=== PATIENT | female | born 1955 ===

== ENCOUNTER 2021-09-16 19:45 | Emergency (ER) | payer OTHER ==
--- NOTE | 2021-09-16 21:58 | RAD REPORT ---
EXAM DESCRIPTION: RAD - Wrist Left 3 View - 09/16/2021 9:42 pm CLINICAL HISTORY: PAIN Pain COMPARISON: No comparisons FINDINGS: Mildly impacted fracture involves the distal radius. Ulnar styloid fracture is also prese nt.
[2021-09-16] MEDS ORDERED: HYDROCODONE/APAP 10/325 TAB ONE (22:17)
[2021-09-16] MEDS ORDERED: IBUPROFEN 200 MG TAB PO ONE (22:17)
--- NOTE | 2021-09-16 22:54 | EDPHYS ---
Physician Documentation [facility] Name: Sheryl Mixon Age: 66 yrs Sex: Female : 1955 Arrival Date: 09/16/2021 Time: 19:47 Bed 11 Private MD: ED Physician Abdi Veras HPI: 09/16 22:57 This 66 yrs old Female presents to ER via Ambulatory with complaints of Wrist Injury. kb 22:57 The patient or guardian reports decreased range of motion, deformity, injury, pain, kb swelling, tenderness. The complaints affect the left wrist diffusely. Context: The problem was sustained at home, resulted from a fall, while walking. Onset: The symptoms/episode began/occurred just prior to arrival. Modifying factors: The symptoms are alleviated by nothing, the symptoms are aggravated by movement. Associated signs and symptoms: The patient has no apparent associated signs or symptoms. The patient has not experienced similar symptoms in the past. The patient has not recently seen a physician. Pt reports her dog made her fall down and she braced herself with her hands. c/o pain to left wrist. Historical: - Allergies: 20:04 No Known Allergies; jb4 - PMHx: 20:04 None; jb4 - PSHx: 20:04 back surgery x6; jb4 - Immunization history:: Adult Immunizations up to date. - Social history:: Smoking status: Patient reports the use of cigarette tobacco products, smokes one-half pack cigarettes per day. ROS: 22:55 Constitutional: Negative for fever, chills, and weight loss. kb 22:55 MS/extremity: Positive for injury or acute deformity, decreased range of motion, deformity, pain, swelling, tenderness, of the left wrist. 22:55 All other systems are negative. Exam: 22:55 Constitutional: This is a well developed, well nourished patient who is awake, alert, kb and in no acute distress. Head/Face: Normocephalic, atraumatic. ENT: Moist Mucous membranes Cardiovascular: Regular rate and rhythm with a normal S1 and S2. No gallops, murmurs, or rubs. No pulse deficits. Respiratory: Respirations even and unlabored. No increased work of breathing. Talking in full sentences Skin: Warm, dry with normal turgor. Normal color. Neuro: Awake and alert, GCS 15, oriented to person, place, time, and situation. Moves all extremities. Normal gait. Psych: Awake, alert, with orientation to person, place and time. Behavior, mood, and affect are within normal limits. 22:55 Musculoskeletal/extremity: Extremities: grossly normal except: noted in the left wrist: decreased ROM, deformity, pain, swelling, tenderness, ROM: limited active range of motion, in the left wrist, Circulation is intact in all extremities. Sensation intact. Vital Signs: 20:02 BP 160 / 88; Pulse 83; Resp 16; Temp 98.1(TE); Pulse Ox 97% on R/A; Weight 77.11 kg jb4 (R); Height 5 ft. 2 in. (157.48 cm) (R); Pain 7/10; 20:02 Body Mass Index 31.09 (77.11 kg, 157.48 cm) jb4 Procedures: 22:58 Splinting: Splint applied to left wrist using Orthoglass splint, applied by tech. kb Examined by me, post splint application: neurovascular intact, 2+ distal pulses palpable, brisk capillary refill noted, Patient tolerated well. MDM: 20:45 Patient medically screened. kb 22:57 Data reviewed: vital signs, nurses notes. Data interpreted: Pulse oximetry: on room air kb is 97 %. Interpretation: normal. Counseling: I had a detailed discussion with the patient and/or guardian regarding: the historical points, exam findings, and any diagnostic results supporting the discharge/admit diagnosis, radiology results, the need for outpatient follow up, a orthopedic surgeon, to return to the emergency department if symptoms worsen or persist or if there are any questions or concerns that arise at home. 09/16 20:09 Order name: XRAY Wrist LEFT 3 view; Complete Time: 21:59 bb 09/16 22:00 Order name: Sugar Tong Forearm Splint; Complete Time: 22:12 kb 09/16 22:00 Order name: Sling; Complete Time: 22:12 kb Administered Medications: 22:13 Drug: [place] (HYDROcodone-acetaminophen) 10 mg-325 mg 1 tabs Route: PO; bb 23:00 Follow up: Response: No adverse reaction; Marked relief of symptoms jb4 22:13 Drug: Ibuprofen 600 mg Route: PO; bb 23:00 Follow up: Response: No adverse reaction; Marked relief of symptoms jb4 Disposition Summary: 09/16/21 22:53 Discharge Ordered Location: Home kb Condition: Stable kb Diagnosis - Impacted fracture left distal radius kb - ulnar styloid fracture - left kb Followup: kb - With: Emergency Department - When: As needed - Reason: Worsening of condition Followup: kb - With: Private Physician - When: 2 - 3 days - Reason: Recheck today's complaints, Continuance of care, Re-evaluation by your physician Discharge Instructions: - Discharge Summary Sheet kb - Radial Fracture kb - Ulnar Fracture kb Forms: - Medication Reconciliation Form kb - Thank You Letter kb - Antibiotic Education kb - Prescription Opioid Use kb Prescriptions: - Diclofenac Sodium 75 mg Oral tablet,delayed release (DR/EC) - take 1 tablet by ORAL route 2 times per day As needed; 30 tablet; Refills: 0, kb Product Selection Permitted Signatures: Dispatcher [employer] EDHayley Purcell FNP-C FNP-Marcela Lima RN RN bb Bryson, James, RN RN jb4
--- NOTE | 2021-09-16 22:54 | ER ---
Nurse's Notes [facility] Name: Sheryl Mixon Age: 66 yrs Sex: Female : 1955 Arrival Date: 09/16/2021 Time: 19:47 Bed 11 Private MD: Diagnosis: Impacted fracture left distal radius;ulnar styloid fracture - left Presentation: 09/16 20:02 Chief complaint: Patient states: I was playing with the dog and was knocked down. I jb4 tried to brace myself and injured my left wrist. I can move my fingers but not well. Coronavirus screen: At this time, the client does not indicate any symptoms associated with coronavirus-19. Ebola Screen: No symptoms or risks identified at this time. Initial Sepsis Screen: Does the patient meet any 2 criteria? No. Patient's initial sepsis screen is negative. Does the patient have a suspected source of infection? No. Patient's initial sepsis screen is negative. Risk Assessment: Do you want to hurt yourself or someone else? Patient reports no desire to harm self or others. Onset of symptoms was September 16, 2021. Transition of care: patient was not received from another setting of care. 20:02 Method Of Arrival: Ambulatory jb4 20:02 Acuity: KRISTIAN 4 jb4 Historical: - Allergies: 20:04 No Known Allergies; jb4 - PMHx: 20:04 None; jb4 - PSHx: 20:04 back surgery x6; jb4 - Immunization history:: Adult Immunizations up to date. - Social history:: Smoking status: Patient reports the use of cigarette tobacco products, smokes one-half pack cigarettes per day. Screenin:05 Abuse screen: Denies threats or abuse. Nutritional screening: No deficits noted. jb4 Tuberculosis screening: No symptoms or risk factors identified. Fall Risk None identified. Assessment: 20:05 General: Appears in no apparent distress. comfortable, Behavior is calm, cooperative, jb4 appropriate for age. Pain: Complains of pain in lateral aspect of left wrist Pain does not radiate. Pain currently is 2 out of 10 on a pain scale. at worst was 10 out of 10 on a pain scale. Neuro: Level of Consciousness is awake, alert, obeys commands, Oriented to person, place, time, situation. Cardiovascular: Patient's skin is warm and dry. Respiratory: Airway is patent Respiratory effort is even, unlabored, Respiratory pattern is regular, symmetrical. Derm: Skin is intact, Skin is pink, warm \T\ dry. Musculoskeletal: Circulation, motion, and sensation intact. Range of motion: intact in all extremities. 22:00 Reassessment: Patient appears in no apparent distress at this time. Patient and/or jb4 family updated on plan of care and expected duration. Pain level reassessed. Patient is alert, oriented x 3, equal unlabored respirations, skin warm/dry/pink. 23:07 Reassessment: Patient appears in no apparent distress at this time. Patient and/or jb4 family updated on plan of care and expected duration. Pain level reassessed. Patient is alert, oriented x 3, equal unlabored respirations, skin warm/dry/pink. Vital Signs: 20:02 BP 160 / 88; Pulse 83; Resp 16; Temp 98.1(TE); Pulse Ox 97% on R/A; Weight 77.11 kg jb4 (R); Height 5 ft. 2 in. (157.48 cm) (R); Pain 7/10; 20:02 Body Mass Index 31.09 (77.11 kg, 157.48 cm) jb4 ED Course: 19:47 Patient arrived in ED. bp1 20:04 Triage completed. jb4 20:04 Arm band placed on right wrist. jb4 20:05 Patient has correct armband on for positive identification. Bed in low position. Call jb4 light in reach. Side rails up X 1. 20:44 Hayley Del Cid FNP-C is [facility]. kb 20:44 Abdi Veras MD is Attending Physician. kb 21:44 XRAY Wrist LEFT 3 view In Process Unspecified. EDMS 22:12 Orthoglass splint: Sugar tong splint applied on left arm. Sling applied to left arm. mh5 22:13 Warm blanket given. Pillow given. Pulse ox on. NIBP on. mh5 22:44 Chad Montelongo, GARRET is Primary Nurse. jb4 23:07 No provider procedures requiring assistance completed. Patient did not have IV access jb4 during this emergency room visit. Administered Medications: 22:13 Drug: [place] (HYDROcodone-acetaminophen) 10 mg-325 mg 1 tabs Route: PO; bb 23:00 Follow up: Response: No adverse reaction; Marked relief of symptoms jb4 22:13 Drug: Ibuprofen 600 mg Route: PO; abbi 23:00 Follow up: Response: No adverse reaction; Marked relief of symptoms jb4 Medication: 20:05 VIS not applicable for this client. jb4 Outcome: 22:53 Discharge ordered by . alan 23:07 Discharged to home ambulatory. jb4 23:07 Condition: stable 23:07 Discharge instructions given to patient, Instructed on discharge instructions, follow up and referral plans. medication usage, Demonstrated understanding of instructions, follow-up care, medications, Prescriptions given X 1. 23:08 Patient left the ED. jb4 Signatures: Dispatcher [employer] EDMS Hayley Del Cid, TAXICAB COORDINATOR-C TAXICAB COORDINATOR-Marcela Lima RN RN Chad Boo RN RN jbRenetta Tamez 5 [facility]
[2021-09-16 23:45] VITALS: BP 160/88; TEMP 98.1; O2SAT 97
== END 2021-09-16 23:08 | disposition home or self-care (01) ==
LOC: ER 19:45
PROC: 2W3DX1Z Immobilization of Left Lower Arm using Splint (ICD-10-PCS; principal; 2021-09-16)
DX: S52.502A Unspecified fracture of the lower end of left radius, initial encounter for closed fracture (principal); S52.612A Displaced fracture of left ulna styloid process, initial encounter for closed fracture; F17.210 Nicotine dependence, cigarettes, uncomplicated
CPT/HCPCS: 99284